=== PATIENT | female | born 2000 | race Two or more races ===

== ENCOUNTER 2018-12-20 13:20 | Emergency (ER) | payer BC ==
[2018-12-20] MEDS ORDERED: Ondansetron INJ* 2 MG/ML VIAL IV ONE (13:25)
[2018-12-20] MEDS ORDERED: NS 0.9% 1000 ML** 1,000 ML IV ONE (13:25)
[2018-12-20 13:56] LABS: ABS Eosinophils 0.1 10^3/ul (0-0.6); ABS Lymphocytes 1.1 10^3/ul (1.0-4.8); ABS Monocytes 0.2 10^3/ul (0-0.8); ABS Neutrophils 2.6 10^3/ul (1.5-7.7); Eosinophil % 2.5 %; Hematocrit 36 % (35-47); Hemoglobin 12.2 g/dL (12.0-16.0); Lymphocyte % 26.4 %; Mean Corpuscular HGB Conc 34 g/dL (31-36); Mean Corpuscular Hemoglobin 30 pg (27-31); Mean Corpuscular Volume 89 fL (80-97); Mean Platelet Volume 8.7 fL (7.4-10.4); Nucleated Red Blood Cells % 0.1; Platelet Count 191 10^3/uL (150-450); Red Cell Distribution Width 13 % (10-15); White Blood Count 4.1 10^3/uL (3.5-10.8)
[2018-12-20 14:11] LABS: Albumin 4.1 g/dL (3.2-5.2); Albumin/Globulin Ratio 1.9 (1-3); BUN/Creatinine Ratio 14.7 (8-20); Calcium 8.4 mg/dL (8.6-10.3); EGFR African American 119.2 (>60); EGFR Non-African American 98.5 (>60); Globulin 2.2 g/dL (2-4); Potassium 3.4 mmol/L (3.5-5.0); Total Bilirubin 0.5 mg/dL (0.2-1.0); Total Protein 6.3 g/dL (6.4-8.9)
--- NOTE | 2018-12-20 17:42 | ED ---
Substance Abuse/Use - HPI Summary HPI Summary: This patient is a 18-year-old female presenting to the ED with alcohol intoxication. She is level V caveat on arrival and is responsive only to sternal rub. She is not alert and oriented to person place or time. Per friend at bedside, patient has been drinking a large amount of alcohol this morning and early afternoon. Denies any drug use. She does not typically drink to this degree or excess. Denies any falls or hitting head. Denies any blood thinners. Otherwise healthy. College student, [facility] - History Of Current Complaint Chief Complaint: EDSubstanceAbuse Stated Complaint: ALTERED MENTAL STATUS PER EMS Hx Obtained From: Patient ?: No Ingestion History: Type/Name Of Drug - alcohol Timing Of Abuse: Binge Use Severity Initially: Severe Severity Currently: Moderate Aggravating Factor(s): Nothing Alleviating Factor(s): Nothing Associated Signs And Symptoms: Negative - Risk Factor(s) Completed Suicide Risk Factors: Negative - Allergies/Home Medications Home Medications: Home Medications Unobtainable 12/20/18 [History Confirmed 12/20/18] PMH/Surg Hx/FS Hx/Imm Hx Previously Healthy: Yes Infectious Disease History: Unable to Obtain/Confirm Infectious Disease History: Denies: Traveled Outside the [place] in Last 30 Days - Social History Occupation: Unemployed, Student Lives: Dormitory/Roommates Alcohol Use: Unable to obtain Substance Use Type: Reports: None Hx Tobacco Use: No Smoking Status (MU): Unknown if Ever Smoked Review of Systems - ROS Summary Review of Systems Summary: Level 5 caveat Negative: Fever, Chills, Fatigue, Skin Diaphoresis Positive: Vomiting, Nausea Genitourinary: Negative Positive: see HPI Negative: Arthralgia, Myalgia Negative: Rash, Bruising All Other Systems Reviewed And Are Negative: Yes Physical Exam Triage Information Reviewed: Yes Vital Signs On Initial Exam: Initial Vitals Temp Pulse Resp BP Pulse Ox 96.9 F 61 18 101/70 98 12/20/18 13:23 12/20/18 13:23 12/20/18 13:23 12/20/18 13:23 12/20/18 13:23 Vital Signs Reviewed: Yes Appearance: Positive: Ill-Appearing - intoxicated Skin: Positive: Warm, Skin Color Reflects Adequate Perfusion Head/Face: Positive: Normal Head/Face Inspection Eyes: Positive: EOMI, DINH, Conjunctiva Clear Neck: Positive: Supple Respiratory/Lung Sounds: Positive: Clear to Auscultation, Breath Sounds Present Cardiovascular: Positive: Pulses are Symmetrical in both Upper and Lower Extremities Abdomen Description: Positive: Nontender Musculoskeletal: Positive: Strength/ROM Intact Neurological: Positive: Sensory/Motor Intact, Speech Normal Psychiatric: Positive: Normal, Affect/Mood Appropriate AVPU Assessment: Alert Procedures - Sedation Patient Received Moderate/Deep Sedation with Procedure: No Diagnostics - Vital Signs Vital Signs Temp Pulse Resp BP Pulse Ox 12/20/18 17:09 58 93/55 97 12/20/18 17:00 58 97 12/20/18 16:39 57 97/59 98 12/20/18 16:09 55 96/61 97 12/20/18 16:00 50 99 12/20/18 15:39 53 91/57 97 12/20/18 15:09 52 95/60 99 12/20/18 15:00 49 98 12/20/18 14:39 51 95/66 98 12/20/18 14:27 51 93/63 97 12/20/18 14:25 48 90/55 97 12/20/18 14:09 48 89/57 98 12/20/18 14:00 46 97 12/20/18 13:40 52 117/74 98 12/20/18 13:34 74 98 12/20/18 13:23 96.9 F 61 18 101/70 98 - Laboratory Lab Results: Lab Results 12/20/18 12/20/18 Range/Units 13:49 13:49 WBC 4.1 (3.5-10.8) 10^3/uL RBC 4.00 (3.70-4.87) 10^6 /uL Hgb 12.2 (12.0-16.0) g/dL Hct 36 (35-47) % MCV 89 (80-97) fL MCH 30 (27-31) pg MCHC 34 (31-36) g/dL RDW 13 (10-15) % Plt Count 191 (150-450) 10^3/uL MPV 8.7 (7.4-10.4) fL Neut % (Auto) 64.5 % Lymph % (Auto) 26.4 % [place] % (Auto) 5.6 % Eos % (Auto) 2.5 % Baso % (Auto) 1.0 % Absolute Neuts (auto) 2.6 (1.5-7.7) 10^3/ul Absolute Lymphs (auto) 1.1 (1.0-4.8) 10^3/ul Absolute Monos (auto) 0.2 (0-0.8) 10^3/ul Absolute Eos (auto) 0.1 (0-0.6) 10^3/ul Absolute Basos (auto) 0.0 (0-0.2) 10^3/ul Absolute Nucleated RBC 0.0 10^3/ul Nucleated RBC % 0.1 Sodium 139 (135-145) mmol/L Potassium 3.4 L (3.5-5.0) mmol/L Chloride 108 (101-111) mmol/L Carbon Dioxide 23 (22-32) mmol/L Anion Gap 8 (2-11) mmol/L BUN 11 (6-24) mg/dL Creatinine 0.75 (0.51-0.95) mg/dL Est GFR ( Amer) 119.2 (>60) Est GFR (Non-Af Amer) 98.5 (>60) BUN/Creatinine Ratio 14.7 (8-20) Glucose 106 H (70-100) mg/dL Calcium 8.4 L (8.6-10.3) mg/dL Total Bilirubin 0.50 (0.2-1.0) mg/dL AST 19 (13-39) U/L ALT 10 (7-52) U/L Alkaline Phosphatase 45 (34-104) U/L Total Protein 6.3 L (6.4-8.9) g/dL Albumin 4.1 (3.2-5.2) g/dL Globulin 2.2 (2-4) g/dL Albumin/Globulin Ratio 1.9 (1-3) Serum Alcohol 252 H (<10) mg/dL Result Diagrams: 12/20/18 13:49 12/20/18 13:49 Lab Statement: Any lab studies that have been ordered have been reviewed, and results considered in the medical decision making process. Course/Dx - Course Course Of Treatment: During course treatment, the patient's evaluated for alcohol intoxication. Patient breathing well. Vomiting on arrival. She is given Zofran. She just continues any vomiting and is able to sleep. Attempted to reawaken 3 hours later, but patient unable to take water or ambulate at this time. Friend is at bedside. Pulse ox continues to be 98% and no interventions needed. Continued to monitor. Alcohol level 252. Other labs WNL. Pt signed out to JANE Peña pending clinical sobriety. - Diagnoses Provider Diagnoses: Alcohol intoxication Discharge ED - Sign-Out/Discharge Documenting (check all that apply): Sign-Out Patient Signing out patient TO: Reinaldo Douglas - Discharge Plan Condition: Stable Disposition: HOME Patient Education Materials: Alcohol Intoxication (ED) Referrals: No Primary Care Phys,NOPCP [Primary Care Provider] - - Billing Disposition and Condition Condition: STABLE Disposition: Home
--- NOTE | 2018-12-20 19:51 | PN ---
Progress Note - Progress Note Date of Service: 12/20/18 Note: The patient signed out to me by Dean LARA pending sobriety. Patient brought to the ED for alcohol intoxication. At 19:52 patient alert and oriented , ambulating without difficulty. Discharged home into custody of roommate in stable condition with diagnosis of alcohol intoxication.
[2018-12-20 20:04] VITALS: BP 112/78
== END 2018-12-20 20:00 | disposition home or self-care (01) ==
LOC: ED 13:20
DX: F10.929 Alcohol use, unspecified with intoxication, unspecified (principal)
CPT/HCPCS: 36415; 80053; 80320; 85025; 96361; 96374; 99284; G0480; J2405